=== PATIENT | male | born 1980 | race Two or more races ===

== ENCOUNTER 2024-06-27 15:31 | Emergency (ER) | payer BC, SELFPAY ==
[2024-06-27 15:59] VITALS: BP 112/64; PULSE 88; RESP 18; TEMP 36.9; O2SAT 100; BMI 32.5
--- NOTE | 2024-06-27 16:08 | EDNOTE_ITS ---
Upper Extremity Injury RME/HPI General Chief Complaint: Extremity Injury, Upper Stated Complaint: lac to left hand 5th digit Time Seen by Provider: 06/27/24 15:51 Source: patient Arrival date/time: 06/27/24 15:31 This is a 44-year-old male who presents to the emergency department with complaints of a laceration noted to his fifth digit of his left hand. Patient states he was attempting to grab and put away some supplies when he wrapped his knife without a cover lacerating his finger. Denies any other concerns. Reports full range of motion of fingers. Limitations: no limitations Review of Systems Review of Systems Systems Reviewed: All systems reviewed, normal except as documented Narrative Review of Systems: Gen: No fever, no chills, no weight loss EYES: No discharge, no visual changes, no pain HEENT: No ear pain, no congestion, no sore throat PULM: No shortness of breath, no cough, no congestion CV: No chest pain, no dyspnea on exertion, no palpitations GI: No nausea, no vomiting, no diarrhea, no pain, no constipation : No frequency, no urgency,? no dysuria Musc/skel: No joint pain, no back pain Skin: laceration ED Exam General Limitations: Present no limitations General appearance: Present alert and in no apparent distress Head Head exam: Present atraumatic Eye Eye exam: Present normal appearance, PERRL and EOMI ENT ENT exam: Present normal exam, normal oropharynx and mucous membranes moist Neck Neck exam: Present normal inspection, full ROM and trachea midline Chest Chest inspection: Present normal inspection and symmetric chest wall rise Respiratory Respiratory exam: Present normal lung sounds bilaterally Cardiovascular Cardiovascular exam: Present regular rate, normal rhythm, normal heart sounds, +S1 and +S2 Abdominal Exam Abdominal exam: Present soft and normal bowel sounds Extremities Exam Extremities exam: Present full ROM Expanded Upper Extremity Exam Hand exam: Present laceration Hand L/R front image: 2 1. laceration (Lt 5th digit palmar aspect 1 cm laceration) Back Exam Back exam: Present normal inspection and full ROM Neurological Exam Neurological exam: Present alert, oriented X3 and CN II-XII intact Psychiatric Psychiatric exam: Present normal affect and normal mood Skin Skin exam: Present warm, dry, intact and normal color Course Quality Measures none Orders Category Date Time Status Set Up Suture Tray STAT Care 06/27/24 16:08 Completed Wound Care NOW Care 06/27/24 16:08 Completed Tet,Diphth,Pertuss(Acell)-Tdap [Boostrix Vacc] Med 06/27/24 16:08 Discontinued 0.5 ml IMI .ONCE ONE Vital Signs Vital signs: Vital Signs Temperature 98.5 F 06/27/24 15:59 Pulse Rate 88 06/27/24 15:59 Respiratory Rate 18 06/27/24 15:59 Blood Pressure 112/64 06/27/24 15:59 Pulse Oximetry (%) 100 06/27/24 15:59 Oxygen Delivery Method Room Air 06/27/24 15:59 Procedures -ED Laceration Laceration 1: Side (If applicable): left Size (cm): 1 Description: linear Depth: simple, single layer Local Anesthetic: lidocaine 1% Amount of anesthesia used (mL): 4 Pre-repair: irrigated extensively Skin layer closed with: vicryl Size (cm): 4-0 Number of sutures: 4 Technique: simple, interrupted Extremity Injury Patient data External records reviewed:: [facility] previous records Clinical information provided by:: patient Social determinants that could affect healthcare access:: none Patient has the following chronic illnesses:: no How is presenting disease/condition affected by chronic disease/condition?: no chronic disease Evaluation data The following diagnostics were reviewed and interpreted by me:: other (specify) Lab and/or radiology exams considered but not ordered:: no Interpretation Summary: no Medications / Prescriptions Medications or Prescriptions considered but not ordered:: n/a Medication administrations:: Medication Administration History Discontinued Medications Diphtheria/Tetanus/Acell Pertussis (Diphth,Pertuss(Acell),Tet Vac 0.5 Ml Vial) 0.5 ml IMi .ONCE ONE Stop: 06/27/24 16:09 no Consultations Consultation(s) initiated? (list below): No Diagnosis Upper Extremity Injury Differential Diagnosis: sprain and strain of wrist Most likely diagnosis given after review of the tests above:: laceration ,suture repain Admission Indicated Admission indicated?: not indicated Admission Request Was there a request for admission?: No Disposition Plan Disposition Plan: Discharge Discharge Attestation Discharge Attestation: The patient and all family members were given an opportunity to ask questions and understood the discharge instructions. Discharge instructions specifically effects, indications for sooner follow up or return to the emergency department, and the expected course of current diagnosis. Patient condition: Stable Discharge Plan Plan Patient Disposition: HOME (Self Care) Patient condition on transfer: Stable Prescriptions/Referrals Referrals: No Primary/Family,Physician [Primary Care Provider] - In 1 week Problem List Clinical Impression: Laceration of finger Patient/Caregiver Discharge Instructions Discharge Activity: activity as tolerated Education Materials: ED Laceration: All Closures Additional Instructions: Please follow up with Primary Doctor in 7-10 day for suture removal. Please return to ER if theres is any sign of infection. Please keep wound clean and dry. Print Language: Pashto Stand Alone Forms: Jolly Award Info., Patient Portal Info Letter PA/STICK ROLLER Supervising Physician PA/STICK ROLLER Supervising Physician: dr meléndez
== END 2024-06-27 18:08 | disposition home or self-care (01) ==
PROVIDERS: Emergency Provider Dermatology
DX: S61.217A Laceration without foreign body of left little finger without damage to nail, initial encounter (principal); W26.0XXA Contact with knife, initial encounter; Y93.89 Activity, other specified
CPT/HCPCS: 12001; 90471; 99283